=== PATIENT | male | born 1940 | race Asian ===

== ENCOUNTER 2017-03-04 08:51 | Outpatient (CLI) | payer OTHER ==
[~2017-03-04 08:51] MED LIST: DIOVAN320 MG PO
== END 2017-03-04 19:04 | disposition home or self-care (01) ==
LOC: US 08:51
DX: R10.84 Generalized abdominal pain (principal)

== ENCOUNTER 2017-03-22 13:41 | Emergency (ER) | payer OTHER ==
[~2017-03-22] VITALS: Ht 162.6 cm; Wt 72.6 kg
[2017-03-22 13:46] VITALS: TEMP 98.7
[2017-03-22 14:20] LABS: PLATELET COUNT 205 K/uL (142-355)
[2017-03-22 14:27] LABS: POTASSIUM 3.6 mmol/L (3.6-5.2)
[2017-03-22 14:38] LABS: PARTIAL THROMBOPLASTIN TIME 22.9 SECONDS (24.5-33.6)
[2017-03-22 16:03] VITALS: BP 118/61
== END 2017-03-22 16:24 | disposition home or self-care (01) ==
LOC: ED 13:41
DX: K21.9 Gastro-esophageal reflux disease without esophagitis (principal); I44.4 Left anterior fascicular block
CPT/HCPCS: 80053; 82550; 84484; 85027; 85610; 85730; 86318; 93005; 99283

== ENCOUNTER 2017-03-28 09:18 | Emergency (ER) | payer OTHER ==
[~2017-03-28] VITALS: Ht 162.6 cm; Wt 72.6 kg
[2017-03-28 09:30] VITALS: BP 127/85; TEMP 99
[2017-03-28 11:19] LABS: PLATELET COUNT 164 K/uL (142-355)
[2017-03-28 11:28] LABS: POTASSIUM 4.3 mmol/L (3.6-5.2); SODIUM 135 mmol/L (136-145)
[2017-03-28] MEDS ORDERED: CLOP75TA2 PO (12:14)
[2017-03-28] MEDS ORDERED: TEMA15CA19 PO (12:15)
[2017-03-28] MEDS ORDERED: OMEP20CA PO (12:15)
[2017-03-28] MEDS ORDERED: NEXIUM40 M1 PO (12:16)
[2017-03-28] MEDS ORDERED: ACET-689 PO (12:16)
[2017-03-28] MEDS ORDERED: ALLO100T22 PO (12:17)
[2017-03-28] MEDS ORDERED: TAMS0.4C PO (12:17)
[2017-03-28] MEDS ORDERED: GABA300C2 PO (12:18)
== END 2017-03-28 12:50 | disposition home or self-care (01) ==
LOC: ED 09:18
PROVIDERS: Family Medicine
DX: R63.4 Abnormal weight loss (principal); M25.572 Pain in left ankle and joints of left foot; M25.571 Pain in right ankle and joints of right foot; M25.522 Pain in left elbow; M25.542 Pain in joints of left hand; M35.3 Polymyalgia rheumatica
CPT/HCPCS: 36415; 80053; 81000; 82550; 84550; 85027; 85651; 96372; 99283; J1885; J2930

== ENCOUNTER 2017-04-07 18:49 | Observation (INO) | payer OTHER ==
[~2017-04-07] VITALS: Ht 162.6 cm; Wt 71.8 kg
[~2017-04-07 18:49] MED LIST changes: +ACET-689 PO; +ALLO100T22 PO; +CLOP75TA2 PO; +GABA300C2 PO; +NEXIUM40 M1 PO; +OMEP20CA PO; +TAMS0.4C PO; +TEMA15CA19 PO
[2017-04-07 18:55] VITALS: BP 125/72; TEMP 98.4
[2017-04-07 20:29] LABS: PLATELET COUNT 316 K/uL (142-355)
[2017-04-07 20:36] LABS: POTASSIUM 4.3 mmol/L (3.6-5.2); SODIUM 135 mmol/L (136-145)
[2017-04-07] MEDS ORDERED: ASPIRIN 8181 MG PO (23:20)
[2017-04-07] MEDS ORDERED: DONE5TAB PO (23:21)
[2017-04-07 23:40] VITALS: BP 140/86; TEMP 98.5; Ht 162.6 cm; Wt 71.8 kg
[2017-04-08] VITALS: BP 140/86; TEMP 98.5
[2017-04-08 04:00] VITALS: BP 130/67; TEMP 98.6
[2017-04-08 05:46] LABS: SODIUM 139 mmol/L (136-145)
[2017-04-08 06:01] LABS: PLATELET COUNT 310 K/uL (142-355)
[2017-04-08 08:00] VITALS: BP 134/79; TEMP 98.6
[2017-04-08 12:00] VITALS: BP 124/72; TEMP 98.4
[2017-04-08 16:00] VITALS: BP 145/82; TEMP 98.6
[2017-04-08 20:00] VITALS: BP 129/73; TEMP 99
[2017-04-09 00:25] VITALS: BP 139/81; TEMP 99.3
[2017-04-09 04:00] VITALS: BP 144/90; TEMP 99.6
[2017-04-09 05:22] LABS: PLATELET COUNT 249 K/uL (142-355)
[2017-04-09 05:28] LABS: POTASSIUM 3.7 mmol/L (3.6-5.2)
[2017-04-09 07:44] VITALS: BP 186/78; TEMP 97.9
[2017-04-09 12:04] VITALS: BP 123/78; BP 138/78; TEMP 97.9; TEMP 99
[2017-04-09 16:40] VITALS: BP 134/76; TEMP 97.8
--- NOTE | 2017-04-09 17:22 | NUR ---
IV D/C'd. DISCHARGE INSTRUCTIONS SIGNED AND GIVEN. Pt. EXIT OUT OF FRONT ENTRANCE VIA W/C.
== END 2017-04-09 17:22 | disposition home or self-care (01) ==
LOC: ED 18:49 → MED/SURG 22:10
PROVIDERS: Internal Medicine
DX: A08.8 Other specified intestinal infections (principal); R53.1 Weakness; E86.0 Dehydration; E87.1 Hypo-osmolality and hyponatremia; E83.51 Hypocalcemia; J02.0 Streptococcal pharyngitis; N40.0 Benign prostatic hyperplasia without lower urinary tract symptoms
CPT/HCPCS: 36415; 80048; 80053; 81000; 82040; 82306; 83735; 83970; 84153; 84154; 84443; 85027; 87205; 87804; 87880; 96365; 96366; 96375; 99220; 99283; G0378; J3475; J3490

== ENCOUNTER 2017-05-09 06:53 | Emergency (ER) | payer OTHER ==
[~2017-05-09] VITALS: Ht 162.6 cm; Wt 68.0 kg
[2017-05-09 06:45] VITALS: TEMP 98
[~2017-05-09 06:53] MED LIST changes: +ASPIRIN 8181 MG PO; +DONE5TAB PO
[2017-05-09 07:19] LABS: PLATELET COUNT 185 K/uL (142-355)
[2017-05-09 07:27] LABS: POTASSIUM 3.9 mmol/L (3.6-5.2)
[2017-05-09 07:36] LABS: PARTIAL THROMBOPLASTIN TIME 21.6 SECONDS (24.5-33.6)
[2017-05-09 09:15] VITALS: BP 116/78
== END 2017-05-09 09:30 | disposition short-term general hospital (02) ==
LOC: ED 06:53
PROVIDERS: Family Medicine
DX: R07.89 Other chest pain (principal); R06.09 Other forms of dyspnea; I20.0 Unstable angina; I50.9 Heart failure, unspecified
CPT/HCPCS: 36415; 80053; 82550; 83880; 84484; 85027; 85610; 85730; 96374; 96375; 99284; J1644; J1940; J2270

== ENCOUNTER 2017-05-09 09:37 | Outpatient (CLI) | payer OTHER | END 2017-05-09 11:01 | disposition short-term general hospital (02) | LOC: AMB 09:37 | DX: R07.89 Other chest pain (principal); R06.09 Other forms of dyspnea; I20.0 Unstable angina; I50.9 Heart failure, unspecified | CPT/HCPCS: A0425; A0427 ==

== ENCOUNTER 2017-05-16 19:03 | Emergency (ER) | payer OTHER ==
[~2017-05-16] VITALS: Ht 162.6 cm; Wt 67.6 kg
[2017-05-16 19:51] LABS: PLATELET COUNT 292 K/uL (142-355)
[2017-05-16 20:09] LABS: POTASSIUM 4.1 mmol/L (3.6-5.2)
[2017-05-16 20:33] LABS: PARTIAL THROMBOPLASTIN TIME 21.4 SECONDS (24.5-33.6)
[2017-05-16] MEDS ORDERED: METO25TA4 PO (20:46)
[2017-05-16] MEDS ORDERED: ACID REDUCER150 M1 PO (20:47)
[2017-05-16] MEDS ORDERED: LIPITOR40 MG PO (20:48)
[2017-05-16] MEDS ORDERED: ALLO100T22 PO (20:49)
[2017-05-16] MEDS ORDERED: PROPAFENONE150 MG PO (20:51)
[2017-05-16] MEDS ORDERED: FUROSEMIDE20 MG PO (20:52)
[2017-05-16] MEDS ORDERED: FELODIPINE10 MG PO (20:53)
[2017-05-16] MEDS ORDERED: VALS160T2 PO (20:53)
[2017-05-16] MEDS ORDERED: BRILINTA90 MG PO (20:54)
[2017-05-16] MEDS ORDERED: NITROGLYCERIN0.4 MG SL (20:56)
[2017-05-16] MEDS ORDERED: TRAV0.003 OP (21:00)
[2017-05-16 22:35] VITALS: BP 98/55; TEMP 98.4
== END 2017-05-16 23:23 | disposition short-term general hospital (02) ==
LOC: ED 19:03
PROVIDERS: Specialist
DX: R55 Syncope and collapse (principal); N17.8 Other acute kidney failure
CPT/HCPCS: 80053; 81000; 82550; 82553; 82565; 83735; 83880; 84100; 84484; 85027; 85379; 85610; 85730; 93005; 96360; 99285

== ENCOUNTER 2017-05-24 22:08 | Emergency (ER) | payer OTHER ==
[~2017-05-24] VITALS: Ht 162.6 cm; Wt 70.3 kg
[~2017-05-24 22:08] MED LIST changes: +ACID REDUCER150 M1 PO; +BRILINTA90 MG PO; +FELODIPINE10 MG PO; +FUROSEMIDE20 MG PO; +LIPITOR40 MG PO; +METO25TA4 PO; +NITROGLYCERIN0.4 MG SL; +PROPAFENONE150 MG PO; +TRAV0.003 OP; +VALS160T2 PO
[2017-05-24 23:05] LABS: PLATELET COUNT 318 K/uL (142-355)
[2017-05-25 01:25] VITALS: BP 106/74; TEMP 98.1
== END 2017-05-25 01:30 | disposition short-term general hospital (02) ==
LOC: ED 22:08
PROVIDERS: Family Medicine
PROC: 30233N1 Transfusion of Nonautologous Red Blood Cells into Peripheral Vein, Percutaneous Approach (ICD-10-PCS; principal; 2017-05-24)
DX: K92.2 Gastrointestinal hemorrhage, unspecified (principal)
CPT/HCPCS: 36415; 36430; 80053; 82272; 85027; 86850; 86900; 86901; 86922; 87040; 96360; 96361; 99285; P9016

== ENCOUNTER 2017-05-25 01:31 | Outpatient (CLI) | payer OTHER | END 2017-05-25 02:56 | disposition short-term general hospital (02) | LOC: AMB 01:31 | DX: K92.2 Gastrointestinal hemorrhage, unspecified (principal); R19.7 Diarrhea, unspecified | CPT/HCPCS: A0425; A0427 ==

== ENCOUNTER 2017-06-15 09:41 | Emergency (ER) | payer OTHER ==
[~2017-06-15] VITALS: Ht 162.6 cm; Wt 64.4 kg
[2017-06-15] MEDS ORDERED: PANTPAK PO (10:09)
[2017-06-15 10:25] LABS: PLATELET COUNT 387 K/uL (142-355)
[2017-06-15 10:26] LABS: POTASSIUM 4.2 mmol/L (3.6-5.2)
[2017-06-15 13:12] VITALS: BP 122/88; TEMP 98
== END 2017-06-15 13:15 | disposition home or self-care (01) ==
LOC: ED 09:41
DX: I50.9 Heart failure, unspecified (principal); M47.896 Other spondylosis, lumbar region
CPT/HCPCS: 36415; 80053; 81000; 83880; 84484; 85027; 93005; 96360; 99284

== ENCOUNTER 2017-06-19 08:56 | Emergency (ER) | payer OTHER ==
[~2017-06-19] VITALS: Ht 162.6 cm; Wt 65.3 kg
[~2017-06-19 08:56] MED LIST changes: +PANTPAK PO
[2017-06-19 11:45] LABS: PLATELET COUNT 303 K/uL (142-355)
[2017-06-19 11:54] LABS: POTASSIUM 4.3 mmol/L (3.6-5.2); SODIUM 139 mmol/L (136-145)
[2017-06-19 14:48] LABS: PARTIAL THROMBOPLASTIN TIME 24.5 SECONDS (24.5-33.6)
[2017-06-19 16:30] VITALS: BP 108/60; TEMP 98
== END 2017-06-19 16:30 | disposition home or self-care (01) ==
LOC: ED 08:56
PROVIDERS: Specialist
DX: R53.81 Other malaise (principal); R62.7 Adult failure to thrive; I25.10 Atherosclerotic heart disease of native coronary artery without angina pectoris; N18.6 End stage renal disease
CPT/HCPCS: 36415; 80053; 81000; 83605; 83735; 85027; 85610; 85730; 96361; 96374; 99284; J1720

== ENCOUNTER 2017-06-20 19:56 | Outpatient (CLI) | payer OTHER | END 2017-06-20 20:00 | disposition short-term general hospital (02) | LOC: AMB 19:56 | DX: R56.9 Unspecified convulsions (principal) | CPT/HCPCS: A0425; A0427 ==

== ENCOUNTER 2017-06-20 20:02 | Inpatient (IN) | payer OTHER ==
[~2017-06-20] VITALS: Ht 162.6 cm; Wt 72.3 kg
[2017-06-20 20:22] LABS: PLATELET COUNT 386 K/uL (142-355)
[2017-06-20 21:07] LABS: POTASSIUM 4.1 mmol/L (3.6-5.2)
[2017-06-20 21:45] VITALS: TEMP 100.1
--- NOTE | 2017-06-21 00:35 | NUR ---
RECEIVED FROM ER VIA STRETCHER. ALERT AND ORIENTED X 3. PATIENT GIVEN AND GIVEN EDUCATION REGARDING BED CONTROLS AND CALL LIGHT. INSTRUCTED TO KEEP BED IN LOW POSITION. 22G HEP LOCK TO RAC INTACT AND PATENT.
[2017-06-21 01:39] VITALS: BP 146/72; TEMP 99.7
[2017-06-21 04:00] VITALS: BP 133/70; TEMP 99
[2017-06-21 06:18] LABS: PLATELET COUNT 319 K/uL (142-355)
[2017-06-21 06:42] LABS: PARTIAL THROMBOPLASTIN TIME 26.7 SECONDS (24.5-33.6)
[2017-06-21 06:46] LABS: POTASSIUM 3.9 mmol/L (3.6-5.2)
--- NOTE | 2017-06-21 07:30 | NUR ---
AM ASSESSMENT DONE. PT UPSET . LEFT. PT'S RR ARE 28. PT SEEMS VERY ANXIOUS.
[2017-06-21 08:00] VITALS: BP 150/79; TEMP 98.7
--- NOTE | 2017-06-21 08:30 | NUR ---
PT ASKING FOR . PT STATED SHE PROLLY THINKS I'M . PT STATED HE ATE BREAKFAST THEN IN NEXT BREATH SAID HE DIDN'T GET BREAKFAST. PT CONFUSED.
--- NOTE | 2017-06-21 11:08 | NUR ---
SON AT BEDSIDE.
[2017-06-21 12:00] VITALS: BP 136/79; TEMP 100.6
--- NOTE | 2017-06-21 12:34 | NUR ---
PT PULLED IV TUBING AWAY FROM IV AND IVF RUNNING IN FLOOR. IV STILL IN INTACT AND FLUSHES WELL. PT HAD A LARGE LOOSE STOOL IN BED PT HAD HIS HANDS IN STOOL. IV SITE WRAPPED WITH ARMIDA AND SECURED WITH TAPE. GAVE PT A BATH AND CHANGED BED LINENS.
[2017-06-21 16:00] VITALS: BP 139/79; TEMP 99.6
[2017-06-21 20:25] VITALS: BP 109/53; TEMP 99.5
[2017-06-22] VITALS: BP 114/68; TEMP 97.6
[2017-06-22 04:00] VITALS: BP 105/75; TEMP 98.3
[2017-06-22 06:31] LABS: POTASSIUM 3.4 mmol/L (3.6-5.2); SODIUM 137 mmol/L (136-145)
[2017-06-22 06:34] LABS: PLATELET COUNT 304 K/uL (142-355)
[2017-06-22 08:00] VITALS: BP 100/61; TEMP 98.5
[2017-06-22 11:47] VITALS: BP 133/73; TEMP 98
--- NOTE | 2017-06-22 13:40 | NUR ---
1ST UNIT PRBC STARTED VIA R FA IV SITE.
--- NOTE | 2017-06-22 15:30 | NUR ---
PT C/O EDEMA R WRIST IV,SITE D/C'D CANNULa intact.SITE SECURED.
[2017-06-22 15:58] VITALS: BP 124/74; TEMP 98.5
--- NOTE | 2017-06-22 16:50 | NUR ---
FIRST UNIT PRBC COMPLETED.
--- NOTE | 2017-06-22 19:00 | NUR ---
pt c/o abd cramping & diarrhea,attempted to call dr garcia,he has gone to administration per oren in [place]. reported to kamla davidson rn.
[2017-06-22 20:00] VITALS: BP 114/60; TEMP 98.6
[2017-06-23] VITALS: BP 104/67; TEMP 98.1
--- NOTE | 2017-06-23 02:44 | NUR ---
06/23/17 0240 PT TURNED AND REPOSTIONED PT HAD A BOWEL MOVEMENT FORMED.PT STATES HE IS HURTING IN ABDOMEN WOULD LIKE SOMETHING FOR PAIN.CC
[2017-06-23 04:00] VITALS: BP 123/62; TEMP 98.5
[2017-06-23 06:30] LABS: PLATELET COUNT 303 K/uL (142-355)
[2017-06-23 06:45] LABS: POTASSIUM 3.7 mmol/L (3.6-5.2); SODIUM 138 mmol/L (136-145)
[2017-06-23 08:00] VITALS: BP 134/68; TEMP 98.1
[2017-06-23 12:00] VITALS: BP 147/80; TEMP 98.5
[2017-06-23 16:00] VITALS: BP 142/72; TEMP 98.6
[2017-06-23 20:00] VITALS: BP 147/72; TEMP 98.4
[2017-06-24] VITALS: BP 141/70; TEMP 98.7
[2017-06-24 04:00] VITALS: BP 147/69; TEMP 98.5
[2017-06-24 05:54] LABS: PLATELET COUNT 337 K/uL (142-355)
[2017-06-24 06:16] LABS: POTASSIUM 3.5 mmol/L (3.6-5.2); SODIUM 138 mmol/L (136-145)
[2017-06-24 08:00] VITALS: BP 134/68; TEMP 98.6
[2017-06-24 12:00] VITALS: BP 141/68; TEMP 98.9
[2017-06-24 16:00] VITALS: BP 136/68; TEMP 99.2
[2017-06-24 20:00] VITALS: BP 131/68; TEMP 98.7
[2017-06-25] VITALS: BP 132/72; TEMP 98.7
[2017-06-25 04:00] VITALS: BP 140/75; TEMP 99.5
[2017-06-25 08:00] VITALS: BP 124/65; TEMP 99.1
[2017-06-25 08:49] LABS: PLATELET COUNT 364 K/uL (142-355)
[2017-06-25 09:06] LABS: POTASSIUM 3.9 mmol/L (3.6-5.2); SODIUM 139 mmol/L (136-145)
[2017-06-25 12:00] VITALS: BP 160/93; TEMP 99.2
[2017-06-25 16:00] VITALS: BP 148/49; TEMP 101.4
--- NOTE | 2017-06-25 17:06 | NUR ---
DR RILEY NOTIFIED OF PT LOW GRADE TEMP. NO ORDERS TO GIVEN TYLENOL AT THIS TIME.
[2017-06-25 20:00] VITALS: BP 134/65; TEMP 99.3
[2017-06-26] VITALS: BP 139/69; TEMP 98.5
[2017-06-26 04:00] VITALS: BP 140/59; TEMP 99.3
[2017-06-26 06:29] LABS: POTASSIUM 3.7 mmol/L (3.6-5.2); SODIUM 135 mmol/L (136-145)
[2017-06-26 08:00] VITALS: BP 140/80; TEMP 99.4
[2017-06-26 10:02] LABS: PLATELET COUNT 357 K/uL (142-355)
== END 2017-06-26 13:00 | disposition swing bed (61) | DRG 871 ==
LOC: ED 20:02 → MED/SURG 23:20
PROVIDERS: Internal Medicine
PROC: 30233N1 Transfusion of Nonautologous Red Blood Cells into Peripheral Vein, Percutaneous Approach (ICD-10-PCS; principal; 2017-06-22)
DX: A41.89 Other specified sepsis (principal); G93.41 Metabolic encephalopathy; E83.52 Hypercalcemia; E87.6 Hypokalemia; D64.89 Other specified anemias; R53.1 Weakness; K57.90 Diverticulosis of intestine, part unspecified, without perforation or abscess without bleeding; E83.42 Hypomagnesemia; R19.7 Diarrhea, unspecified; I10 Essential (primary) hypertension
CPT/HCPCS: 36415; 36430; 80053; 80202; 81000; 82272; 82330; 82550; 82728; 82747; 83540; 83550; 83735; 83970; 84100; 84153; 84443; 84466; 84484; 85027; 85610; 85651; 85730; 86140; 86850; 86900; 86901; 86922; 87015; 87040; 87045; 87070; 87077; 87088; 87185; 87186; 87205; 87324; 87328; 87329; 87449; 87899; 93005; 94664; 94760; 96365; 96366; 96368; 96372; 99284; J0132; J1170; J1644; J1940; J2543; J3370; J3475; J3490; P9016; Q9963

== ENCOUNTER 2017-06-26 11:25 | Inpatient (IN) | payer OTHER ==
[~2017-06-26] VITALS: Ht 162.6 cm; Wt 65.0 kg
[2017-06-26 16:06] VITALS: BP 141/75; TEMP 99.1; Ht 162.6 cm; Wt 65.0 kg
[2017-06-26 20:00] VITALS: BP 122/63; TEMP 99
[2017-06-27 08:34] VITALS: BP 153/76; TEMP 98.5
[2017-06-27 20:00] VITALS: BP 119/66; TEMP 98.9
[2017-06-28 08:00] VITALS: BP 124/70; TEMP 98.8
[2017-06-28 20:00] VITALS: BP 130/69; TEMP 98.3
[2017-06-29 08:00] VITALS: BP 133/89; TEMP 98.6
[2017-06-29 20:00] VITALS: BP 134/78; TEMP 98.8
[2017-06-30 08:00] VITALS: BP 149/81; TEMP 98.9
[2017-06-30 20:20] VITALS: BP 136/75; TEMP 98.7
[2017-07-01 08:00] VITALS: BP 151/93; TEMP 98
[2017-07-01 15:27] LABS: POTASSIUM 4.3 mmol/L (3.6-5.2)
[2017-07-01 20:00] VITALS: BP 126/79; TEMP 98.9
[2017-07-02 04:25] LABS: PLATELET COUNT 480 K/uL (142-355)
[2017-07-02 04:30] LABS: POTASSIUM 3.5 mmol/L (3.6-5.2); SODIUM 136 mmol/L (136-145)
[2017-07-02 08:00] VITALS: BP 113/68; TEMP 98.8
== END 2017-07-02 10:00 | disposition short-term general hospital (02) | DRG 556 ==
LOC: MED/SURG 11:25
PROVIDERS: Internal Medicine; ADMIT Family Medicine
DX: M62.81 Muscle weakness (generalized) (principal); E83.52 Hypercalcemia; R53.81 Other malaise; I10 Essential (primary) hypertension
CPT/HCPCS: 36415; 80053; 83735; 85027; 85610

== ENCOUNTER 2017-07-02 10:00 | Inpatient (IN) | payer OTHER ==
[~2017-07-02] VITALS: Ht 162.6 cm; Wt 65.0 kg
[2017-07-02 20:00] VITALS: BP 154/82; TEMP 98.6
[2017-07-03] VITALS (7 sets, daily range): BP systolic 129–170; BP diastolic 77–91; TEMP 97.6–99.2
[2017-07-03 08:14] LABS: PLATELET COUNT 467 K/uL (142-355)
[2017-07-03 09:10] LABS: POTASSIUM 3.5 mmol/L (3.6-5.2)
[2017-07-04 04:00] VITALS: BP 142/71; TEMP 98.6
[2017-07-04 04:18] LABS: PLATELET COUNT 416 K/uL (142-355)
[2017-07-04 04:27] LABS: POTASSIUM 3.2 mmol/L (3.6-5.2); SODIUM 137 mmol/L (136-145)
[2017-07-04 08:00] VITALS: BP 143/85; TEMP 98.1
[2017-07-04 12:00] VITALS: BP 147/82; TEMP 98.5
[2017-07-04 16:00] VITALS: BP 143/80; TEMP 98.1
[2017-07-04 20:20] VITALS: BP 145/82; TEMP 98.7
[2017-07-05] VITALS: BP 149/93; TEMP 98.6
[2017-07-05 04:00] VITALS: BP 143/85; TEMP 98.6
[2017-07-05 06:41] LABS: PLATELET COUNT 359 K/uL (142-355)
[2017-07-05 06:55] LABS: POTASSIUM 3.1 mmol/L (3.6-5.2); SODIUM 136 mmol/L (136-145)
[2017-07-05 08:00] VITALS: BP 141/76; TEMP 98.6
[2017-07-05 12:00] VITALS: BP 146/82; TEMP 98.6
[2017-07-05 16:00] VITALS: BP 154/80; TEMP 98.8
[2017-07-05 20:00] VITALS: BP 157/96; TEMP 98.6
[2017-07-06] VITALS (9 sets, daily range): BP systolic 128–167; BP diastolic 63–96; TEMP 98–99.7
[2017-07-06 05:27] LABS: PLATELET COUNT 334 K/uL (142-355)
[2017-07-06 05:36] LABS: POTASSIUM 2.5 mmol/L (3.6-5.2); SODIUM 140 mmol/L (136-145)
== END 2017-07-06 23:10 | disposition short-term general hospital (02) | DRG 872 ==
LOC: MED/SURG 10:00 → ICU 07-06 16:00
PROVIDERS: ADMIT Internal Medicine
PROC: 30253N1 (ICD-10-PCS; principal; 2017-07-06)
DX: A41.89 Other specified sepsis (principal); A04.8 Other specified bacterial intestinal infections; D62 Acute posthemorrhagic anemia; E83.52 Hypercalcemia; D72.828 Other elevated white blood cell count; I48.91 Unspecified atrial fibrillation; E87.6 Hypokalemia
CPT/HCPCS: 36415; 36430; 36591; 80048; 82306; 82397; 82550; 82652; 83735; 83880; 83970; 84100; 84443; 84484; 85014; 85018; 85027; 86850; 86900; 86901; 86922; 87015; 87045; 87077; 87205; 87324; 87328; 87329; 87449; 87899; 93005; 94760; 96372; J0713; J1644; J1650; J3480; J3490; P9016